=== PATIENT | male | born 1990 | race Caucasian/White ===

== ENCOUNTER 2017-09-10 06:55 | Emergency (ER) | payer MEDICAID ==
[2017-09-10 07:07] VITALS: BP 114/90
--- NOTE | 2017-09-10 07:48 | EDPHY ---
HPI/HX/ROS/PE/MDM Narrative: CHIEF COMPLAINT: Left arm laceration HPI: The patient is a 27 y/o male complaining of an accidental laceration to his left arm that occurred around 23:00 last night, about 8.5 hours ago. He says he was using a knife to pry open the back of his phone to get the battery out and the knife slipped hitting his left arm. He had bleeding and pain and attempted to control it with bandages. Upon waking up this morning he was still bleeding so he decided to come into the ED. He denies any weakness, paresthesias , or other injuries. He has a history of epilepsy, but is otherwise healthy. REVIEW OF SYSTEMS: Aside from elements discussed in the HPI, a comprehensive 10-point review of systems was reviewed and is negative. PMH: Epilepsy - no seizure in years. SOCIAL HISTORY: Lives in [place]. Single. PHYSICAL EXAM: General:Patient is alert, in no acute distress. ENT:Eyes are normal to inspection. ENT inspection normal. Respiratory:No respiratory distress. Skin: Normal color. No rash. Warm and dry. Left arm: 2cm linear laceration on the lateral volar forearm with some mild non- pulsatile bleeding. Light touch sensation and motor function is preserved in the axillary, median, radial and ulnar nerve distributions. There is a 2+ radial pulse with brisk cap refill. 5/5 strength all digits and wrist to flexion /extension. Other Extremities: Normal appearance. Full range of motion. Neuro: Oriented x3. Normal motor function. Normal sensory function. ED Course: This is a healthy 27 y/o male who presents with an accidental 2cm laceration to his forearm from a knife that occurred about 8.5 hours ago. He has a small amount of associated non-pulsatile bleeding. He is neurovascularly intact. Plan for wound care and laceration repair. There is no evidence for tendon or neurovascular injury. Procedure: Laceration repair. Verbal consent was obtained from the patient. The linear 2cm laceration on the left volar forearm was cleaned with standard ED protocol, draped and explored to its base with a gloved finger. There were no deep structures involved. No tendon injury was identified. No FB seen. The wound was repaired in single layer technique with 7 sutures of 4-0 Proline. The wound repair was simple. The procedure was performed by myself, Dr. Coombs. Patient will be discharged with standard laceration care and follow up instructions. He is comfortable with this plan. General Time Seen by Provider: 09/10/17 07:26 Initial Vital Signs: Initial Vital Signs Temperature (C) 36.7 C 09/10/17 07:04 Heart Rate 110 H 09/10/17 07:04 Respiratory Rate 18 09/10/17 07:04 Blood Pressure 114/90 H 09/10/17 07:04 O2 Sat (%) 97 09/10/17 07:04 O2 Delivery Mode Room Air Allergies/Adverse Reactions: No Known Allergies Allergy (Unverified 09/10/17 07:07) Home Medications: Medication Instructions Recorded LaMICtal 09/10/17 Departure - Departure Disposition: Home, Routine, Self-Care Clinical Impression: Laceration of left forearm Condition: Good Instructions: Care For Your Stitches (ED), Laceration (ED) Additional Instructions: 1. Return for suture removal in 7-10 days. 2. Keep site clean and dry. Okay to clean gently with soap and water after the first 24-48 hours. 3. Follow up with your primary care provider for unimproved symptoms over the next few days. 4. Return to the ED for severe pain, dramatic increase in swelling or redness or pus, weakness or numbness in your hand or fingers, fever, or other worsening of condition. Referrals: Siomara Frausto MD [Medical Doctor] - As per Instructions [facility],. [Clinic] - As per Instructions Report Scribed for: Silvano Coombs Report Scribed by: Padmini Stephenson Date of Report: 09/10/17 Time of Report: 07:48 Physician Review and Approval Statement: Portions of this note were transcribed by an ED scribe. I personally performed the history, physical exam, and medical decision making; and confirm the accuracy of the information in the transcribed note.
== END 2017-09-10 08:50 | disposition home or self-care (01) ==
PROC: 0HQEXZZ Repair Left Lower Arm Skin, External Approach (ICD-10-PCS; principal; 2017-09-10)
DX: S51.812A Laceration without foreign body of left forearm, initial encounter (principal); W26.0XXA Contact with knife, initial encounter

== ENCOUNTER → 2018-08-31 | Outpatient (CLI) | payer MEDICAID | LOC: FIMAGING 17:33 | PROVIDERS: ATTEND Psychiatry & Neurology Neurology | DX: G40.909 Epilepsy, unspecified, not intractable, without status epilepticus (principal) | CPT/HCPCS: 70551-PN ==

== ENCOUNTER 2018-09-11 20:15 | Emergency (ER) | payer MEDICAID ==
[2018-09-11] MEDS ORDERED: NS 500 ML IV ONE (20:23)
--- NOTE | 2018-09-11 20:34 | EDPHY ---
H & P Time Seen by Provider: 09/11/18 20:17 HPI/ROS: HPI Seizure. History of seizure disorder. 28-year-old male from home by ambulance. This patient was sitting on a couch. He was around friends. He had a witnessed tonic-clonic seizure lasting approximately 3 min. EMS report that he was postictal after the event. On arrival to the emergency department he is clearing. He has a known seizure disorder. He has only had a few seizures however in the last few years. He is currently being managed by Dr. Alexander Grady of the neurology service. He is currently taking Lamictal for seizure medication. Blood sugar reported as 107 per EMS. ROS: Constitutional: No fever, no chills. As above. Eyes: No discharge. No changes in vision. ENT: No sore throat. No nasal congestion or rhinorrhea. Respiratory: No cough. No shortness of breath. Cardiac: No chest pain, no palpitations. Gastrointestinal: No abdominal pain, no vomiting, no diarrhea. Genitourinary: No hematuria. No dysuria or increased frequency with urination. Musculoskeletal: No back pain. No neck pain. No myalgias or arthralgias. Skin: No rashes. Neurological: No headache. No focal weakness or altered sensation. Past medical history: [place] teeth removed. Seizure disorder. Social history: Denies any IV drugs or street drugs. Denies alcohol. Currently here by himself. Physical Exam: General Appearance: Alert, no distress. This patient is responding to questions appropriately and in full sentences. This patient appears well- hydrated and well-nourished. Head: Normocephalic atraumatic. Eyes: Pupils equal and round and reactive to light at 3-2 mm bilaterally, no pallor or injection. No lid edema, erythema or injection. No nystagmus. No photophobia. ENT, Mouth: Mucous membranes are moist. The pharyngeal tissues are unremarkable. No edema or swelling. No asymmetry suggestive of abscess. No erythema or exudates. He has 2 small superficial right lateral tongue puncture type abrasions. These are not suturable. Respiratory: There are no retractions, lungs are clear to auscultation with good air movement bilaterally. Cardiovascular: Regular rate and rhythm. No murmur. Gastrointestinal: Abdomen is soft and nontender, no masses, bowel sounds normal. No focal tenderness at McBurney's point. No Yañez sign. Neurological: Motor sensory function is grossly intact. Cranial nerves are normal. Gait is normal. Skin: Warm and dry, no rashes. Musculoskeletal: Neck is supple and nontender. No pain on flexion of his neck. No midline cervical, thoracic tenderness on palpation. Extremities are symmetrical. All joints range without pain or impingement. Psychiatric: No agitation. No depression. Database: EKG: Imaging: Procedures: Emergency department course: Triage vital signs reviewed and are normal. IV had been established by EMS. He was placed on a ekg monitor tech by our staff. Seizure precautions instituted , basic metabolic panel ordered to evaluate for metabolic abnormality. This patient's presentation however is consistent with a breakthrough seizure. 8:40 p.m., the patient was re-evaluated, repeat neurologic Assessment is nonfocal. His grandparents are currently at the bedside. They can take him home. Waiting results of basic metabolic panel. Diagnosis and management plan discussed with his grandparents. 8:50 p.m., patient re-evaluated, resting comfortably. Repeat neurologic Assessment is nonfocal. Results of his chemistry panel discussed with him at his grandparents. He feels comfortable going home with his grandparents who will be driving. Follow-up and return to emergency department precautions were thoroughly reviewed with him and his grandparents. All of their questions were answered. He will be staying with his grandparents tonight. He was discharged in good condition. Differential Diagnosis: The differential diagnosis on this patient includes but is not limited to breakthrough seizure. Hypoglycemia, hyponatremia, meningitis, encephalitis, intracranial mass, intracranial bleeding unlikely. This represents a partial list of diagnoses considered. These considerations are based on history, physical exam, past history, reassessment and diagnostic testing. Smoking Status: Never smoked Constitutional: Initial Vital Signs Temperature (C) 36.8 C 09/11/18 20:18 Heart Rate 98 09/11/18 20:18 Respiratory Rate 16 09/11/18 20:18 Blood Pressure 135/87 H 09/11/18 20:18 O2 Sat (%) 96 09/11/18 20:18 O2 Delivery Mode Room Air Allergies/Adverse Reactions: No Known Allergies Allergy (Unverified 09/11/18 20:18) Home Medications: Medication Instructions Recorded LaMICtal 09/10/17 Medical Decision Making - Data Points Laboratory Results: Laboratory Results 09/11/18 20:20 09/11/18 20:20 Sodium 139 mEq/L mEq/L (135-145) Potassium 4.4 mEq/L mEq/L (3.5-5.2) Chloride 104 mEq/L mEq/L (97-110) Carbon Dioxide 13 mEq/l L mEq/l (22-31) Anion Gap 22 mEq/L H mEq/L (6-14) BUN 11 mg/dL mg/dL (7-23) Creatinine 0.9 mg/dL mg/dL (0.7-1.3) Estimated GFR > 60 Glucose 93 mg/dL mg/dL (70-100) Calcium 9.5 mg/dL mg/dL (8.5-10.4) Medications Given: Discontinued Medications Sodium Chloride (Ns) 500 mls @ 0 mls/hr IV EDNOW ONE; Wide Open PRN Reason: Protocol Stop: 09/11/18 20:24 Last Admin: 09/11/18 20:28 Dose: 500 mls Departure - Departure Disposition: Home, Routine, Self-Care Clinical Impression: Breakthrough seizure, Seizure disorder Condition: Good Instructions: Recurrent Seizures in Adults (ED) Additional Instructions: Read and follow provided instructions. Follow-up with your neurologist, Dr. Alexander Grady, within the next 2-3 days for re -evaluation. Continue taking her Lamictal as prescribed. You're not to drive or operate heavy machinery under any circumstances until cleared by your neurologist Dr. Grady. Return to the emergency department for return of seizures, loss of sensation or weakness in your extremities or other serious concerns. Referrals: Alexander Grady MD [Medical Doctor] - As per Instructions
[2018-09-11 21:10] VITALS: BP 122/75
== END 2018-09-11 21:11 | disposition home or self-care (01) ==
LOC: EDUNIT#
DX: G43.909 Migraine, unspecified, not intractable, without status migrainosus (principal)

== ENCOUNTER → 2018-09-19 | Outpatient (CLI) | payer MEDICAID ==
--- NOTE | 2018-09-20 10:16 | CPEEG ---
[f rep st] ELECTROENCEPHALOGRAM FOUR-HOUR VIDEO EEG DATE OF STUDY: 09/19/2018 DATE OF INTERPRETATION: 09/20/2018 INTERPRETATION: This 4-hour video EEG recording is essentially normal. There were no definite poten tially epileptogenic abnormalities present during the awake or sleep recordings. There was a single burst of sharply contoured waveforms present during sleep of uncertain clinical significance. The kathy wayne did not have any clinical events during the video EEG monitoring session. REPORT: This 4-hour video EEG contains 10 Hz alpha activity to the posterior head regions. The back ground activity was normal and symmetric. There was no abnormal epileptiform activation at rest, dur ing photic stimulation, or hyperventilation. The patient became drowsy and fell asleep during the st udy. During sleep and drowsiness, there was a single burst of sharply contoured waveforms with a gen eralized distribution of uncertain clinical significance. There were no other definite epileptiform discharges during sleep, drowsiness, or during times of arousal. The patient did not have any clinic al events during the video EEG monitoring session. /[id number]/MODL
== END ==
LOC: FCPNEURO 11:11
PROVIDERS: ATTEND Psychiatry & Neurology Neurology
DX: G40.909 Epilepsy, unspecified, not intractable, without status epilepticus (principal)